=== PATIENT | male | born 1955 | race Caucasian/White ===

== ENCOUNTER → 2022-06-15 07:43 | Outpatient (CLI) | payer MEDICARE, SELFPAY ==
[2022-06-15 08:30] LABS: Add Manual Diff / Slide Review NO; Basophils Absolute Auto 0 /uL (0-100); Basophils Percent Auto 0.6 % (0-2); Eosinophils Absolute Auto 100 /uL (0-450); Hematocrit 44.2 % (41-53); Hemoglobin 14.9 g/dL (13.5-17.5); Lymphocytes Absolute Auto 1300 /uL (1100-4500); Mean Corpuscular HGB Conc 33.6 % (30-36); Mean Corpuscular Hemoglobin 32.3 PG (26-34); Mean Corpuscular Volume 96.1 fL (80-100); Monocytes Absolute Auto 500 /uL (0-900); Monocytes Percent Auto 11.5 % (3-14); Neutrophils Absolute Auto 2100 /uL (1500-7000); Neutrophils Percent Auto 53.9 % (50-75); Platelet Count 141 X10^3/uL (150-400); Red Cell Distribution Width 13.8 % (11.6-14.8); White Blood Cell Count 3.9 X10^3/uL (4.5-11.0)
[2022-06-15 09:17] LABS: Hemoglobin A1C% w Est Avg Glu 5.2 % (4.0-6.0)
[2022-06-15 10:13] LABS: BUN Creatinine Ratio 21.8 (6-22); Blood Urea Nitrogen 19 mg/dL (9-20); Calcium 8.7 mg/dL (8.4-10.2); Carbon Dioxide 25 mmol/L (22-32); Chloride 106 mmol/L (98-107); Estimated Glomerular Filt Rate > 60 mL/min (>60); Glucose 104 mg/dL (80-110); HEMOLYSIS < 15 (0-50); Potassium 4.8 mmol/L (3.4-5.1); Sodium 138 mmol/L (137-145)
== END ==
PROVIDERS: PCP Family Medicine; Referring Provider Orthopaedic Surgery; Visit Provider Orthopaedic Surgery
DX: Z01.818 Encounter for other preprocedural examination (principal); R73.9 Hyperglycemia, unspecified; Z01.812 Encounter for preprocedural laboratory examination
CPT/HCPCS: 36415; 80048; 83036; 85025; 93005; 93010

== ENCOUNTER 2022-07-01 10:39 | Day surgery (SDC) | payer MEDICARE, SELFPAY ==
[2022-06-16 12:37] VITALS: BMI 29.7
[2022-07-01] VITALS (13 sets, daily range): BP systolic 95–135; BP diastolic 51–80; PULSE 58–72; RESP 13–20; TEMP 35.9–36.6; O2SAT 95–100; BMI 29.7
--- NOTE | 2022-07-01 08:30 | DI.RAD.S_ITS ---
PROCEDURE: XR KNEE RT 1TO2V INDICATIONS: post op total knee TECHNIQUE: 2 view(s) of the knee acquired. COMPARISON: [facility] Outside [facility], RG, KNEE 3VW (RT), 03/09/2022, 8:26. Jaron Ruslan, JOLEEN, KNEE 1-2 VIEWS RIGHT, 12/03/2016, 10:14. FINDINGS: Bones: Patient is status post knee joint arthroplasty. Hardware components are in expected positions. Visualized bony structures are intact. Soft tissues: Overlying postoperative changes are noted. IMPRESSION: Normal postoperative examination. Dictated by: Ilya Rodriguez M.D. on 07/01/2022 at 13:44 Approved by: Ilya Rodriguez M.D. on 07/01/2022 at 13:44
--- NOTE | 2022-07-01 11:07 | PM.PREOP ---
Pre-operative Note COVID-19 COVID-19 status: Negative Result date/Date tested (Pos, Neg/Pending): 06/29/22 Interval Note History & Physical reviewed/Exam performed by Physician: Yes Changes to H&P: No
[2022-07-01] MEDS: LACTATED RINGERS 1,000 ML 42 ML IV (11:26)
[2022-07-01] MEDS: PREGABALIN 75 MG CAPSULE PO (11:26)
[2022-07-01] MEDS: CELECOXIB 200 MG CAPSULE PO (11:27)
[2022-07-01] MEDS: ACETAMINOPHEN 325 MG TABLET 975 MG PO (11:27)
[2022-07-01] MEDS: CEFAZOLIN 2 GM IN 0.9 % NACL 100 ML IV (11:40)
--- NOTE | 2022-07-01 11:57 | SUR.OPER ---
Supine on padded OR bed. Pillow under head, arms secured on padded armboards <90 degree abduction. Safety belt across torso. Non-operative leg secured with tape over blanket over lower leg. Operative leg secured in DeMayo/Zacarias/Nathe positioner. Foam padded brace at thigh of operative leg. POSITION APPROVED BY SURGEON AND ANESTHESIA.
[2022-07-01] MEDS: MORPHINE 4 MG/ML INJ INJ (12:40)
[2022-07-01] MEDS: BUPIVACAINE 0.5% W/ EPI (PF) 30 ML VIAL INJ (12:40)
[2022-07-01] MEDS: BUPIVACAINE LIPOSOME 266 MG/20 ML VIAL INJ (12:40)
--- NOTE | 2022-07-01 13:01 | P.OP_ITS ---
Operative Date/Time/Diagnoses Date of procedure: 07/01/22 Time of procedure: 13:01 Pre-op diagnosis: Right knee osteoarthritis Post-op diagnosis: same Procedure & Clinicians Procedure: Right total knee replacement Same procedure as scheduled: Yes Indications: The patient has had progressively worsening right knee pain with radiographic changes consistent with arthritis. Non-operative management has failed and the patient has requested total knee replacement. The risks, benefits and alternatives to surgery were discussed with the patient prior to proceeding. Risks discussed included, but were not limited to, failure to relieve pain, stiffness, infection, nerve damage, deep venous thrombosis, pulmonary embolism, stroke, coma, heart attack, permanent paralysis and , as well as the potential need for eventual revision of the prosthetic. Surgeon: Waylon Brush Curriculum Development Coordinator: Kevin Mcneill Click Yes if Unassisted: No Anesthesia Type: General, Spinal and Local Operative Notes Findings: Severe tricompartmental osteoarthritis Closure Type: primary Specimen(s): none sent Prosthetic devices, grafts, tissues, transplants, or devices: Implants used in this procedure were manufactured by the [employer] and included the BCS II Journey total knee replacement with a size 8 right Oxinium femur, a size 8 non porous tibial base plate, a 10 mm cross-linked polyethylene tibial insert and a 38 mm oval Kyara II patellar component. Applied: implant(s) Estimated Blood Loss (mL): 50 Blood products transfused: none Tourniquet time (min): 50 Procedure in detail: The patient was seen in the pre-operative area, where the patient identified the right knee as the operative site and this was marked with my initials. The patient received pre-operative antibiotics, and was taken to the operating room and placed on the operative table in the supine position. After satisfactory anesthesia, a time study clerk out was performed. The right leg was encircled with a tourniquet about the proximal thigh, and the leg was prepared from the toes to the tourniquet with ChloroPrep in the usual fashion and draped through sterile drapes. The leg was elevated and exsanguinated with Eschmark bandage and the tourniquet inflated to 250 mmHg pressure. The knee was approached through an approximately 18 cm incision centered over the patella and carried into the knee through a medial parapatellar arthrotomy. The anterior osteophytes and soft tissues were removed. The rotational landmarks of Craig's line and the transepicondylar axis were marked on the femur with electrocautery, and intramedullary guide holes for the femur and tibia were created. The distal femoral cut was made in 6 degrees of valgus using the intramedullary guide at the primary cut setting. The proximal tibial cut was then made using the intramedullary guide, taking 9 mm of bone off the less involved side. The extension gap was checked and the rotation of the femoral component confirmed with the gap balancing system. The anterior, posterior and chamfer cuts were then made. The posterior osteophytes and soft tissues were then removed. The posterior capsule was injected with part of a mixture of 60 ml 0.25% Marcaine mixed with 20 ml Exparel and 4 mg of morphine for post-operative pain control. The remainder of this mixture was injected into the capsule and subcutaneous tissues during cement curing. The tibia was prepared with the rotation set by an extra medullary guide. Trial tibial and femoral components were then placed and the intercondylar notch cut through the femoral trial. Range of motion was 0-135 degrees, with good stability throughout the range. The patella was then cut to accommodate the patellar prosthetic. There was no need for a lateral release. The trials were then removed, and the femoral hole plugged with a bone plug. The bone was prepared with pulsatile lavage, and dried with a sponge. Cement was applied and the final prosthetics placed. Excess cement was removed during and after cement curing. After confirming there was no extruded cement posteriorly, the final tibial insert was placed. The knee was copiously irrigated and the tourniquet deflated. Hemostasis was obtained. The capsule was closed with interrupted # 2 polyester suture. The subcutaneous layer was closed with 3-0 Vicryl, and the skin with a running 3-0 V-Lock suture and Dermabond. An Aquacel Ag dressing was applied and the patient was taken to recovery having tolerated the procedure well. The services of a skilled fish hatchery assistant were necessary to accomplish the procedure in an expedient fashion. These services included appropriate positioning of the leg, retraction, suction and assisting with preparation of the bone surfaces. Without the services of Mr. Mcneill the surgery could not have been performed efficiently. Complications: none Post-operative Condition: stable Disposition: PACU Plan for aftercare: The patient will be maintained on a standard total knee replacement protocol wit h weight bearing as tolerated. The patient will receive aspirin and sequential compression devices for DVT prophylaxis. The patient will be discharged home when safe for the home environment.
--- NOTE | 2022-07-01 13:48 | SUR.PHASEI ---
report called to Ariel VINCENT and opportunity for questions given. pt being transferred to room 220. pt updated on plan of care and is agreeable.
[2022-07-01] MEDS: HYDROMORPHONE 0.5 MG INJ 0.2 MG IV (14:39)
[2022-07-01] MEDS: HYDROMORPHONE 2 MG TABLET PO (14:40)
[2022-07-01] MEDS: LACTATED RINGERS 1,000 ML 100 ML IV (15:42)
[2022-07-01] MEDS: hydrOXYzine pamoate 25 MG CAPSULE PO (15:44)
[2022-07-01] MEDS: OXYCODONE IR 10 MG TABLET PO (15:44)
[2022-07-01] MEDS: ACETAMINOPHEN 325 MG TABLET 650 MG PO (17:08)
[2022-07-01] MEDS: OXYCODONE IR 5 MG TABLET PO (18:40)
[2022-07-01] MEDS: DOCUSATE 100 MG CAPSULE PO (21:55)
[2022-07-02 00:20] VITALS: BP 89/55; PULSE 65; RESP 14; TEMP 36.6; O2SAT 96
[2022-07-02] MEDS: ACETAMINOPHEN 325 MG TABLET 650 MG PO ×2 (00:21→05:59)
[2022-07-02 00:30] VITALS: BP 99/62
[2022-07-02 03:45] VITALS: BP 99/52; PULSE 58; RESP 14; TEMP 36.7; O2SAT 98
[2022-07-02 05:25] LABS: Hematocrit 36.7 % (41-53); Hemoglobin 12.5 g/dL (13.5-17.5)
[2022-07-02] MEDS: OXYCODONE IR 10 MG TABLET PO ×2 (05:58→08:46)
[2022-07-02] MEDS: SODIUM CHLORIDE 0.9% FLUSH 10 ML IV ×3 (06:19→09:00)
--- NOTE | 2022-07-02 07:29 | PM.DS.1 ---
History of Present Illness History of Present Illness Date Patient Seen: 07/02/22 Time Patient Seen: 07:29 Chief complaint: right total knee Arthroplasty *OPB* Narrative: The history and physical is contained in the chart in a previously completed note. Please refer to that note for this information. Discharge Providers Provider Date of admission: July 01, 2022 Discharge Date: 07/02/22 Primary care physician: Baljit Noguera MD Consults: 07/01/22 13:51 Consult to Discharge Planning Routine Comment: Consult to Physical Therapy Evaluate & Treat Comment: Physician Instructions: postop TKA protocol Discharge provider: Waylon Brush MD Summary Hospital Course Discharge Diagnosis: 1. Right knee posttraumatic osteoarthritis 2. Post hemorrhagic anemia Hospital Course: The patient was admitted to the hospital and taken directly to the operating room on July 01, 2022. He underwent a right total knee replacement without significant issues. On postoperative day 1 he was noted to have a mild post hemorrhagic anemia which we anticipate will improve with expectant management and normal diet. Status at Discharge Cognitive/behavioral status at discharge: at baseline, oriented Functional status at discharge: uses cane/walker Overall status at discharge: patient is progressing back to baseline Time Spent with Patient Time spent: Less than 30 minutes Exam Vital Signs (past 8 hours): - 07/02/22 00:20 07/02/22 00:30 07/02/22 03:45 Temperature 97.8 F 98.1 F Pulse Rate 65 58 L Respiratory Rate 14 14 Blood Pressure 89/55 L 99/62 99/52 L Pulse Oximetry 96 98 Oxygen Flow Rate 0 0 Oxygen Delivery Method Room Air Oxygen Flow Rate 0 Narrative Exam Narrative: Right knee wound is dressed with no drainage on the bandage. Calf is soft. I touch and motion are intact in the right lower extremity. Objective Labs Result Diagrams: 07/02/22 04:40 Labs: Laboratory Results - last 24 hr 07/02/22 04:40 Hgb 12.5 L Hct 36.7 L PFSH Medical History (Updated 06/16/22 @ 13:26 by Kim Calvillo RN) Ankle swelling Anxiety about health COVID-19 virus infection (05/15/22) DVT (deep venous thrombosis) (2014) Easy bruisability Surgical History (Updated 06/16/22 @ 13:17 by Kim Calvillo RN) H/O vasectomy Hx of hernia repair (2020) Hx of knee surgery (1979) Hx of vein stripping (1977) Social History household members: spouse Smoking Status: Former smoker alcohol intake: current Discharge Assessment & Plan Assessment and Plan Assessment: Stable postoperative day 1 status post right total knee replacement with mild post hemorrhagic anemia. Plan of Treatment: Plan for discharge today. Follow up in my office in 10-14 days. Discharge prescription for oxycodone, Lovenox and Vistaril have been called in. He also has been instructed in the use of Tylenol for additional pain control. He will be on Lovenox initially due to his prior history of a deep venous thrombosis. After he completes a 10 day course of Lovenox he will be on aspirin 81 mg twice a day. Discharge Plan Discharge Plan Patient Disposition: Home Discharge orders & Medications Discharge Orders: Discharge (Order); Ordered 07/02/22 Ordered By: Waylon Brush Prescriptions: New acetaminophen 325 mg Tablet 650 mg PO Q6HR Qty: 100 0RF oxycodone 5 mg Tablet 5 mg PO Q4H PRN (Reason: Pain, Moderate (4-6)) Qty: 40 0RF hydroxyzine pamoate 25 mg Capsule 25 mg PO Q6H PRN (Reason: Nausea And Vomiting) Qty: 30 0RF enoxaparin [Lovenox] 40 mg/0.4 mL Syringe 40 mg SUBCUT DAILY Qty: 9 0RF Continued multivitamin Tablet 1 tab PO DAILY vitamin B complex Capsule 1 cap PO DAILY Follow up/Referrals: Waylon Brush MD [Physician] - 2 Weeks Baljit Noguera MD [Primary Care Provider] - Diet/Activity/Treatments Diet: Diet as Tolerated and Regular Activity: You may bear weight as tolerated on your right leg. Cold/Heat Therapy: Apply ice for 15 minutes every hour as needed to the right knee for pain control. Other treatments: After you have completed the Lovenox, start aspirin 81 mg twice a day. Skin/Wound/Dressing Care Report to your healthcare provider any signs of infection, such as:: chills, fever, night sweats, increased pain, unusual drainage and unusual redness Dressing: You may remove the Timothy wrap 3 days after surgery and shower normally with the deeper dressing in place. Leave the deeper dressing in place until your postoperative follow-up. If the central strip of this dressing becomes saturated with either water or blood, please call the office to have it evaluated. Visit Report/Discharge Packet Instructions: DI for Knee Replacement Stand Alone Forms: Surgery Discharge Discharge Data Primary Care Provider: Baljit Noguera Attending Provider: Waylon Brush Quality VTE Deep Vein Thrombosis/Pulmonary Embolism Present on Admission: No
[2022-07-02 08:01] VITALS: BP 108/62; PULSE 61; RESP 18; TEMP 36.8; O2SAT 100
[2022-07-02] MEDS: ENOXAPARIN 40 MG/0.4 ML SYRINGE SUBCUT (08:45)
[2022-07-02] MEDS: DOCUSATE 100 MG CAPSULE PO (08:46)
--- NOTE | 2022-07-02 08:57 | PT.IIE ---
Current Diagnoses Unilateral post-traumatic osteoarthritis, right knee (07/01/22) Surgery Performed Operation Date: 07/01/22 13:15 Actual Procedures p Total Knee Arthroplasty(Right) - Waylon Brush MD Surgical History (Last Updated 06/16/22 @ 13:17 by Kim Calvillo, MELISA) H/O vasectomy Hx of hernia repair (2020) Hx of knee surgery (1979) Hx of vein stripping (1977) Medical History (Last Updated 06/16/22 @ 13:26 by Kim Calvillo RN) Ankle swelling Anxiety about health COVID-19 virus infection (05/15/22) DVT (deep venous thrombosis) (2014) Easy bruisability Physical Therapy Inpatient Evaluation/Re-Eval M1 PT/OT-IP Prior Functional Status Start: 07/02/22 13:29 Freq: NEEDED Status: Active Protocol: Document 07/02/22 08:57 AB (Rec: 07/02/22 13:38 AB [email or web address]) Medical Review Prior Functional Status Medical History Reviewed Yes Communication able to make needs known Mobility and Gait pt stated that he is independent with all mobilities and ambulation without AD Social History Household Members spouse Living Arrangements House Number of Floors (Floors) 3 or More Floors Number of Stairs To Enter/Railing? 5 steps to tner with wide rails 3 steps B rails to the kitchen Home Environment High Toilet,Walk in Shower Home Equipment Front Wheel Walker,Quad Cane, Straight Cane,Crutches,Shower Seat without Backrest,Hand Held Shower,Grab Bars In Shower M2 PT-IP Current Condition Start: 07/02/22 13:29 Freq: NEEDED Status: Active Protocol: Document 07/02/22 08:57 AB (Rec: 07/02/22 13:38 AB [email or web address]) Physical Therapy Current Condition Current Condition Evaluation Date 07/02/22 Treatment Diagnosis s/p R TKA; difficulty in walking Onset Date 07/01/22 M3 PT-IP Subjective Start: 07/02/22 13:29 Freq: NEEDED Status: Active Protocol: Document 07/02/22 08:57 AB (Rec: 07/02/22 13:38 AB [email or web address]) Subjective Physical Therapy Visit Type Type Initial Evaluation Visit Start Time 08:57 Visit Stop Time 09:52 Total Visit Minutes 55 Number of AQUATICS DIRECTOR Visits 0 Physical Therapy Visit Comments Patient Comments agreeable to do PT M4 PT-IP Mobility and Gait Start: 07/02/22 13:29 Freq: NEEDED Status: Active Protocol: Document 07/02/22 08:57 AB (Rec: 07/02/22 13:38 AB [id number]) PT-Bed Mobility Assessment Supine to Sit Supine to Sit Standby Assistance Sit to Supine Sit to Supine Standby Assistance PT-Transfer Assessment Sit to and From Stand Sit to and from Stand Contact Guard Assistance,1 Person Assistance,Use of Upper Extremities Equipment Transfer Assistive Device Gait Belt,Front Wheeled Walker Orthotic/Prosthetic Devices or Brace: No Transfers Transfer Destination Chair Transfer Technique ambulated Transfer Ability Level of Assist Contact Guard Assistance,1 Person Assistance,Use of Upper Extremities Comments Mobility Comments completed supine to sit SBA. able to sit on EOB SBA. educated on safety and quads activation in standing. completed sit to stand CGA and ambulated to the chair using FWW CGA. pt sat on the chair. caregiver training conducted . educated spouse on how to use safety belt and how to assist pt. spouse was able to put safety belt on. assisted pt with sit to stand and assisted pt with ambulation using fWW in the hallway ~ 125 ft. educated pt on up/down steps using R rail ascending. educated spouse on how to assist pt. pt completed stairs safely with spouse assisting. pt ambulated towards the room using FWW ~ 100 ft CGA. assisted back to his room. ambulated from w/c to chair using fWW CGA. positioned on chair. call light and table placed within reach. Gait Assessment Gait Gait Assistance Required: Contact Guard Assist Distance (Feet) 125 Able to Maintain Weight Bearing Status Yes During Gait Assistive Devices Assistive Device Gait Belt,Front Wheeled Walker Orthotic/Prosthetic Devices or Brace: No Gait Deviations General Gait Pattern Antalgic,Decreased Stride Length,Decreased Feet Clearance Factors Limiting Gait Function Factors Limiting Gait Function Decreased Activity Tolerance, Decreased Strength,Limited Range of Motion,Pain,Poor Balance,Poor Safety Awareness Stair Climbing Assessment Evaluation Level of Assist On Stairs Contact Guard Assistance Devices Stair Climbing Assistive Devices Right Railing Technique/Endurance Stair Climbing Direction Ascend and Descend Stair Climbing Technique Step to Step Number of Steps Climbed 3 Query Text: Stair Climbing Set # Repetitions (reps) 2 PT-Balance Assessment Sitting Balance and Reactions Static Sitting Balance Ability Good Dynamic Sitting Balance Ability Good Standing Balance and Reactions Static Standing Balance Ability Fair Dynamic Standing Balance Ability Fair Device Used FWW M5 PT-IP Objective Assessments Start: 07/02/22 13:29 Freq: NEEDED Status: Active Protocol: Document 07/02/22 08:57 AB (Rec: 07/02/22 13:38 AB [id number]) Orientation Orientation/Cognition Level of Alertness Alert Orientation Name,Place,Situation Language Function Ability No Deficits Noted Safety Awareness Decreased Safety Awareness Memory Description No Deficits Noted Gross Range of Motion Lower Extremity ROM Impairments R knee flexion: ~ 40 deg R knee extension: 20 deg less to 0 Strength Lower Extremity Strength Assessment Right Impaired Hip 3+/5 Knee 3/5 Sensation Assessment Sensation Gross Sensation WNL Muscle Tone Muscle Tone WNL Yes M6 PT-IP Treatment Start: 07/02/22 13:29 Freq: NEEDED Status: Active Protocol: Document 07/02/22 08:57 AB (Rec: 07/02/22 13:38 AB [id number]) Physical Therapy Treatment Education Education Provided Precautions,Weight Bearing Status,Post-Op Packet,Safety M7 PT-IP Assessment and Plan Start: 07/02/22 13:29 Freq: NEEDED Status: Active Protocol: Document 07/02/22 08:57 AB (Rec: 07/02/22 13:38 AB [email or web address]) PT Summary Assessment and Plan Potential Rehabilitation Potential Good Status of Condition at Evaluation Stable Summary Impairments Pain,ROM,Strength,Balance, Coordination,Sensation,Tone, Cognition,Bed Mobility, Transfers,Gait,Activity Tolerance Assessment Summary pt requiring CGA with mobility using FWW. caregiver training conducted and spouse was able to assist pt safely. pt may go home when medically stable. Goals Bed Mobility Goal Independent Transfer Goal Independent,Front Wheeled Walker Gait Goal Independent,Front Wheel Walker Gait Distance 250 Other Goals up/down 5 steps R rail mod I Days to Meet Goals 5 Frequency of Treatment Frequency Of Treatment Twice a Day Treatment Plan Physical Therapy Treatment Plan Bed Mobility Training,Transfer Training,Gait Training, Therapeutic Exercise,Balance Retraining,Post Op Education, Discharge Planning,Hot or Cold Pack,Neuromuscular Re-ed, Coordination Retraining,Manual Therapy Weight Bearing Status Weight Bearing Status Weight Bear as Tolerated Allowed Weight Bearing Amount (enter % RLE WBAT or #) (%) Recommendations To Nursing Amount of Assist Needed 1 Person Assist Discharge Recommendations PT Discharge Recommendations Home with Assistance, Outpatient PT Transportation Needs at Discharge Private Vehicle
--- NOTE | 2022-07-02 10:33 | PC.NURSE ---
dc instructions given including how to administer enoxiparin. I demonstrated how to give the injection, patient and wanted to watch only. they said they will be comfortable doing it at home even without return demonstration. IV removed by PRINTING PRESSMAN.
== END 2022-07-02 10:33 | disposition home or self-care (01) ==
LOC: OR 10:41 → AC 10:43
PROVIDERS: PCP Family Medicine; Referring Provider Orthopaedic Surgery; Visit Provider Orthopaedic Surgery
PROC: 0SRC0JZ Replacement of Right Knee Joint with Synthetic Substitute, Open Approach (ICD-10-PCS; CPT 27447; principal; 2022-07-01 13:15)
DX: M17.11 Unilateral primary osteoarthritis, right knee (principal); D50.0 Iron deficiency anemia secondary to blood loss (chronic)
CPT/HCPCS: 27447; 36415; 73560; 85014; 85018; 97161; 97530; C1776; C1713; C9290; J0690; J1100; J1170; J1650; J2250; J2270; J2405; J2704; J3010

== ENCOUNTER 2022-08-04 16:05 | Emergency (ER) | payer MEDICARE, SELFPAY ==
[2022-07-01 13:56] VITALS: BMI 29.7
[2022-08-04 16:30] VITALS: BP 139/62; PULSE 62; RESP 16; TEMP 36.7; O2SAT 98; BMI 26.9
--- NOTE | 2022-08-04 17:58 | DI.RAD.S_ITS ---
PROCEDURE: XR KNEE RT 3V INDICATIONS: status post right TKA, skin erythema and drainage TECHNIQUE: 3 views of the knee were acquired. COMPARISON: [facility], [place], XR KNEE RT 1TO2V, 07/01/2022, 13:10. FINDINGS: Bones: Total knee joint prosthesis noted in place. Generalized decrease in osseous mineralization noted. Soft tissues: No joint effusion. No suspicious soft tissue calcifications. IMPRESSION: Total knee arthroplasty in good position. Osteopenia. Approved by: Misbah Tyler M.D. on 08/04/2022 at 18:05
--- NOTE | 2022-08-04 18:47 | ED.LOWEXIN ---
HPI - Extremity Injury (Lower) <Genoveva Rivera PA-C - Last Filed: 08/04/22 20:22> General Chief Complaint: Extremity Injury, Lower Stated Complaint: Right knee replacement thinks infection Time Seen by Provider: 08/04/22 17:37 History of Present Illness HPI Narrative: 66-year-old male who is 5 weeks status post a right knee replacement presents to the ED with 4 days of wound dehiscence. Patient states that he was healing well, there is a spot on his incision, which he said opened up a little bit, and he saw some clear fluid come from it. Patient states that the area feels warm, however he has no pain or swelling. Patient was unable to contact his surgeon Dr. Brush on the phone today, and came into the ED to be evaluated. Patient denies any fevers or chills, nausea, vomiting. Patient has been working well with physical therapy to rehabilitate his right knee. Patient says that it is after he started his physical therapy and increased movement that he noticed his wound dehisce. Related Data Home Medications Medication Instructions Recorded Confirmed multivitamin 1 tab PO DAILY 06/16/22 06/16/22 vitamin B complex 1 cap PO DAILY 06/16/22 06/16/22 Previous Rx's Medication Instructions Recorded acetaminophen 325 mg tablet 650 mg PO Q6HR #100 tabs 07/02/22 enoxaparin 40 mg/0.4 mL 40 mg (0.4 mL) SUBCUT DAILY #9 mL 07/02/22 subcutaneous syringe (Lovenox) hydroxyzine pamoate 25 mg capsule 25 mg PO Q6H PRN Nausea And 07/02/22 Vomiting #30 caps oxycodone 5 mg tablet 5 mg PO Q4H PRN Pain, Moderate 07/02/22 (4-6) #40 tabs Allergies Allergy/AdvReac Type Severity Reaction Status Date / Time rivaroxaban [From Xarelto] AdvReac Intermediate Back Pain Verified 07/01/22 11:01 Review of Systems <Genoveva Rivera PA-C - Last Filed: 08/04/22 20:22> Review of Systems ROS Unobtainable: All systems reviewed & are unremarkable except as noted in HPI and below Constitutional Constitutional: Denies chills, Denies fatigue, Denies fever(s), Denies frequent falls, Denies lethargy and Denies weakness Eyes Eyes: Denies change in vision, Denies eye discharge, Denies irritation and Denies loss of vision ENT Ears, Nose, Mouth, and Throat: Denies change in voice, Denies dizziness, Denies neck pain, Denies sore throat and Denies throat swelling Cardiovascular Cardiovascular: Denies chest pain, Denies irregular heart rhythm, Denies lightheadedness, Denies palpitations, Denies dyspnea, Denies dyspnea on exertion and Denies orthopnea Respiratory Respiratory: Denies cough, Denies dyspnea, Denies dyspnea on exertion and Denies wheezing Gastrointestinal Gastrointestinal: Denies abdominal pain, Denies change in bowel habits, Denies diarrhea, Denies nausea and Denies vomiting Genitourinary Genitourinary: Denies hematuria, Denies flank pain, Denies urinary incontinence and Denies urinary urgency Musculoskeletal Musculoskeletal: Denies back pain, Denies muscle weakness, Denies neck pain, Denies numbness and Denies tingling Integumentary/Breasts Skin/Breast: Denies pruritus, Denies erythema, Denies rash and Denies wounds Comments: Wound dehiscence on right knee Neurologic Neurologic: Denies behavioral changes, Denies confusion, Denies dizziness, Denies frequent falls, Denies loss of vision, Denies numbness, Denies tingling and Denies weakness Psychiatric Psychiatric: Denies anxiety, Denies behavioral changes, Denies confusion, Denies depression, Denies homicidal ideation and Denies suicidal ideation Endocrine Endocrine: Denies fatigue, Denies flushing and Denies palpitations Hematologic/Lymphatic Hematologic/Lymphatic: Denies easy bruising Allergic/Immunologic Allergic/Immunologic: Denies urticaria, Denies throat swelling and Denies wheezing Patient History <Genoveva Rivera PA-C - Last Filed: 08/04/22 20:22> Medical History Ankle swelling Anxiety about health COVID-19 virus infection (05/15/22) DVT (deep venous thrombosis) (2014) Easy bruisability Surgical History H/O vasectomy Hx of hernia repair (2020) Hx of knee surgery (1979) Hx of vein stripping (1977) Social History household members: spouse Smoking Status: Former smoker alcohol intake: current Smoking Status: Former smoker alcohol intake frequency: 0-2 drinks per day Substance Use Type: marijuana Exam <Genoveva Rivera PA-C - Last Filed: 08/04/22 20:22> Narrative Exam Narrative: Const General:?cooperative, healthy appearing and comfortable HENNC Head:?normal to inspection Ears:?hearing grossly normal bilaterally Nose:?external nose normal Face and sinus:?normal facial exam and sinuses nontender Mouth:?oral mucosae normal Throat:?posterior oropharynx normal Eyes General:?appearance normal, both eyes and all related structures Neck Neck:?normal visual inspection and no lymphadenopathy noted Resp Effort & Inspection:?normal respiratory effort Auscultation:?clear to auscultation bilaterally Cardio Rate:?regular rate Rhythm:?regular rhythm Integumentary Small, 0.25 cm area of wound dehiscence noted, a drop of serous fluid visualized on exam. No purulence. There is some erythema surrounding the area, but no swelling or tenderness to palpation. Patient has good range of motion in the knee, is able to walk normally. Neuro General:?patient alert, patient awake and patient oriented x3 Initial Vital Signs Initial Vital Signs: Vital Signs Temperature 98.0 F 08/04/22 16:30 Pulse Rate 62 08/04/22 16:30 Respiratory Rate 16 08/04/22 16:30 Blood Pressure 139/62 08/04/22 16:30 Pulse Oximetry 98 08/04/22 16:30 Oxygen Delivery Method 08/04/22 16:30 <Vdial Herrera MD - Last Filed: 09/15/22 08:53> Initial Vital Signs Initial Vital Signs: Vital Signs Temperature 98.0 F 08/04/22 16:30 Pulse Rate 62 08/04/22 16:30 Respiratory Rate 16 08/04/22 16:30 Blood Pressure 139/62 08/04/22 16:30 Pulse Oximetry 98 08/04/22 16:30 Oxygen Delivery Method 08/04/22 16:30 Course <Genoveva Rivera PA-C - Last Filed: 08/04/22 20:22> Orders Ordered: ED Orders 08/04/22 16:37 Wound Culture and Gram Stain Stat 08/04/22 17:58 XR knee RT 3V Stat Vital Signs Vital signs: Vital Signs - 8 hr 08/04/22 16:30 Temperature 98.0 F Pulse Rate 62 Respiratory Rate 16 Blood Pressure 139/62 Pulse Oximetry 98 Oxygen Delivery Method Room Air <Vidal Herrera MD - Last Filed: 09/15/22 08:53> Orders Ordered: ED Orders 08/04/22 16:37 Wound Culture and Gram Stain Stat 08/04/22 17:58 XR knee RT 3V Stat Vital Signs Vital signs: Vital Signs - 8 hr 08/04/22 16:30 Temperature 98.0 F Pulse Rate 62 Respiratory Rate 16 Blood Pressure 139/62 Pulse Oximetry 98 Oxygen Delivery Method Room Air MDM - Extremity Injury (Lower) <Genoveva Rivera PA-C - Last Filed: 08/04/22 20:22> MDM Narrative Medical decision making narrative: 66-year-old male who is 5 weeks status post a right knee replacement presents to the ED with 4 days of wound dehiscence. Concern for cellulitis versus wound dehiscence. Will start patient on Keflex. Patient agrees to follow-up with Dr. Brush as soon as possible. ED return precautions discussed with patient. Patient verbalized understanding. Discharge Plan Departure Patient Disposition: Home Clinical Impression: Wound dehiscence Instructions: DI for Wound Dehiscence Activity Restrictions/Additional Instructions: You were evaluated in the ED today to evaluate a surgical wound. It appears that the wound might be infected, also opened up a little due to all the physical therapy that you have been doing by flexing the knee. Please take the antibiotics as prescribed, follow-up with Ortho Dr. Brush as soon as possible. Your knee x-ray today shows no abnormalities. Please return to the ED if you have worsening symptoms, fever, chills. Prescriptions: No Action multivitamin Tablet 1 tab PO DAILY vitamin B complex Capsule 1 cap PO DAILY acetaminophen 325 mg Tablet 650 mg PO Q6HR Qty: 100 0RF oxycodone 5 mg Tablet 5 mg PO Q4H PRN (Reason: Pain, Moderate (4-6)) Qty: 40 0RF hydroxyzine pamoate 25 mg Capsule 25 mg PO Q6H PRN (Reason: Nausea And Vomiting) Qty: 30 0RF enoxaparin [Lovenox] 40 mg/0.4 mL Syringe 40 mg SUBCUT DAILY Qty: 9 0RF Referrals: Baljit Noguera MD [Primary Care Provider] - Visit Report Forms: Patient Portal/API <Vidal Herrera MD - Last Filed: 09/15/22 08:53> Cosign ED Attending Dawoodature Attestation: I was immediately available for consultation of this patient was seen and evaluated by the APC in the department.
== END 2022-08-04 19:15 | disposition home or self-care (01) ==
PROVIDERS: Emergency Provider Student in an Organized Health Care Education/Training Program; PCP Family Medicine
DX: T81.30XA Disruption of wound, unspecified, initial encounter (principal)
CPT/HCPCS: 73562; 87070; 87075; 87077; 87147; 87186; 87205; 99281; 99283

== ENCOUNTER 2024-05-01 12:13 | Emergency (ER) | payer MEDICARE, SELFPAY ==
[2022-07-01 13:56] VITALS: BMI 29.7
[2024-05-01 12:28] VITALS: BP 101/60; PULSE 73; RESP 17; TEMP 36.7; O2SAT 99; BMI 27.3
--- NOTE | 2024-05-01 12:34 | DI.US.S_ITS ---
PROCEDURE: US PERIPH VENOUS LOW EXTREM RT INDICATIONS: r/u DVT after injury, not on thinners TECHNIQUE: Real-time imaging, as well as color and pulse Doppler interrogation, were performed of the lower extremity deep veins from the inguinal ligament to the popliteal fossa, with documentation of the visualized calf veins. COMPARISON: None. FINDINGS: The common femoral, femoral, popliteal, and the visualized calf veins are normally compressible, and free of intraluminal thrombus. Color and pulse Doppler demonstrate normal phasic intraluminal flow. There is normal augmentation response to distal compression maneuver. There is some soft tissue edema and superficial varicosities involving the proximal right calf region. IMPRESSION: No findings of lower extremity deep venous thrombosis. Dictated by: Jose F Hughes M.D. on 05/01/2024 at 13:22 Approved by: Jose F Hughes M.D. on 05/01/2024 at 13:23
--- NOTE | 2024-05-01 13:30 | DI.RAD.S_ITS ---
PROCEDURE: XR ANKLE RT MIN 3V INDICATIONS: Pain/injury TECHNIQUE: 3 views of the ankle were acquired. COMPARISON: [facility], CR, XR TIBIA FIBULA RT 2V, 05/01/2024, 13:35. [facility], CR, XR ANKLE LT MIN 3V, 05/01/2024, 13:35. [facility], CR, XR TIBIA FIBULA LT 2V, 05/01/2024, 13:35. FINDINGS: Bones: Small ossification is present posterior to lateral cuneiform and inferior to the anterior calcaneus. Soft tissues: No tibiotalar joint effusion. Achilles tendon appears normal. IMPRESSION: Small irregular ossification is present posterior to scutal form inferior to anterior calcaneus. Avulsion fracture be excluded Dictated by: Mer Cross M.D. on 05/01/2024 at 14:25 Approved by: Mer Cross M.D. on 05/01/2024 at 14:26
--- NOTE | 2024-05-01 13:32 | ED_ITS ---
HPI - Extremity Injury (Lower) General Chief Complaint: Extremity Injury, Lower Stated Complaint: ran over legs with tractor, thinks getting clots Time Seen by Provider: 05/01/24 13:22 Source: patient and family Mode of arrival: Wheelchair History of Present Illness HPI Narrative: Patient here with . Complains of right greater than left leg pain/injury. Pants shoes and socks removed for exam. Patient states 2 ays ago he was t rying to get off his small tractor, while he was bringing his left leg out of the tractor his right foot caught the gas and brake pedal system and caused the tractor to go backwards and the front left tire ran over his left foot and ankle bringing him down to the ground. It was soft mud that his left lower extremity sank into. He has been up and walking without difficulty since then. However as diffuse medial posterior bruising of the right leg. No history of blood clots in legs or lungs. No chest pain or shortness of breath. Related Data Home Medications Medication Instructions Recorded Confirmed multivitamin 1 tab PO DAILY 06/16/22 06/16/22 vitamin B complex 1 cap PO DAILY 06/16/22 06/16/22 Previous Rx's Medication Instructions Recorded acetaminophen 325 mg tablet 650 mg (2 x 325 mg) PO Q6HR #100 07/02/22 tabs enoxaparin 40 mg/0.4 mL 40 mg (0.4 mL) SUBCUT DAILY #9 mL 07/02/22 subcutaneous syringe (Lovenox) hydroxyzine pamoate 25 mg capsule 25 mg PO Q6H PRN Nausea And 07/02/22 Vomiting #30 caps oxycodone 5 mg tablet 5 mg PO Q4H PRN Pain, Moderate 07/02/22 (4-6) #40 tabs Allergies Allergy/AdvReac Type Severity Reaction Status Date / Time rivaroxaban [From Xarelto] AdvReac Intermediate Back Pain Verified 05/01/24 1 2:28 Review of Systems Review of Systems Narrative: GENERAL: negative chills, fatigue, malaise, fever, sweats. HEENT: negative sinus pain, ear pain, sore throat RESPIRATORY: negative dyspnea, cough CARDIOVASCULAR: negative chest pain, palpitations GASTROINTESTINAL: negative nausea, vomiting, abdominal pain : negative dysuria, frequency, hematuria MUSCULOSKELETAL: Positive muscle or bony pain SKIN: negative rash, skin lesions NEUROLOGIC: negative weakness, numbness ROS Unobtainable: All systems reviewed & are unremarkable except as noted in HPI and below Patient History Medical History COVID-19 virus infection (05/15/22) Anxiety about health Easy bruisability Ankle swelling DVT (deep venous thrombosis) (2014) Surgical History H/O vasectomy Hx of hernia repair (2020) Hx of vein stripping (1977) Hx of knee surgery (1979) Social History household members: spouse Smoking Status: Former smoker alcohol intake: current Smoking Status: Former smoker alcohol intake frequency: 0-2 drinks per day Substance Use Type: marijuana Exam Narrative Exam Narrative: GENERAL: in no distress, not toxic not dyspneic HEAD: Normocephalic. EYES: Pupils equal round EXTREMITIES: No gross deformities. Examination right lower extremity there is diffuse bruising and tenderness to the medial posterior leg. Mild diffuse calf tenderness but no palpable cords. Achilles tendon is nontender. Brooks test intact. Skin is intact. Foot is warm soft and pink. Strong pedal pulse brisk cap refills and light touch intact to foot and toes. Examination left lower extremity nontender calf tib-fib ankle and foot. Foot is warm soft and pink with brisk cap refills. Patient able to bear and stand way and walk, not antalgic or foot drop. No gross deformities of the ankles. Compression of both calcaneus nontender. BACK: No flank tenderness. No midline tenderness or step-off of the cervicothoracic or lumbar spine NEURO: AOx4. SKIN: Warm and dry PSYCH: Not anxious, is cooperative Initial Vital Signs Initial Vital Signs: Vital Signs Temperature 98.0 F 05/01/24 12:28 Pulse Rate 73 05/01/24 12:28 Respiratory Rate 17 05/01/24 12:28 Blood Pressure 101/60 05/01/24 12:28 Pulse Oximetry 99 05/01/24 12:28 Oxygen Delivery Method Room Air 05/01/24 12:28 Course Orders Ordered: ED Orders 05/01/24 12:34 US periph venous low extrem rt Stat 05/01/24 13:30 XR ankle LT min 3V Stat XR ankle RT min 3V Stat XR tibia fibula LT 2V Stat XR tibia fibula RT 2V Stat Vital Signs Vital signs: Vital Signs - 8 hr 05/01/24 12:28 05/01/24 15:03 Temperature 98.0 F Pulse Rate 73 73 Respiratory Rate 17 16 Blood Pressure 101/60 120/74 Pulse Oximetry 99 98 Oxygen Delivery Method Room Air Room Air MDM - Extremity Injury (Lower) Imaging Data US - DVT: Radiologist's Impression: [address] [address] Ultrasound Report Signed Patient: Adelaide Menezes MR#: [id number] : 1955 Acct:[id number] Age/Sex: 68 / M Date of Service: 05/01/24 Loc: ED Accession Number: [id number] Procedure: US periph venous low extrem rt Ordering Provider: Ranjan Brooks MD PROCEDURE: US PERIPH VENOUS LOW EXTREM RT INDICATIONS: r/u DVT after injury, not on thinners TECHNIQUE: Real-time imaging, as well as color and pulse Doppler interrogation, were performed of the lower extremity deep veins from the inguinal ligament to the popliteal fossa, with documentation of the visualized calf veins. COMPARISON: None. FINDINGS: The common femoral, femoral, popliteal, and the visualized calf veins are normally compressible, and free of intraluminal thrombus. Color and pulse Doppler demonstrate normal phasic intraluminal flow. There is normal augmentation response to distal compression maneuver. There is some soft tissue edema and superficial varicosities involving the proximal right calf region. IMPRESSION: No findings of lower extremity deep venous thrombosis. Dictated by: Jose F Hughes M.D. on 05/01/2024 at 13:22 Approved by: Jose F Hughes M.D. on 05/01/2024 at 13:23 Extremity x-ray #1: Radiologist's Impression: [address] [address] XRay Report Signed Patient: Adelaide Menezes MR#: [id number] : 1955 Acct:[id number] Age/Sex: 68 / M Date of Service: 05/01/24 Loc: ED Accession Number: [id number] Procedure: XR tibia fibula LT 2V Ordering Provider: Ant Santizo MD PROCEDURE: XR TIBIA FIBULA LT 2V INDICATIONS: Pain/injury TECHNIQUE: 2 views of the tibia and fibula were acquired. COMPARISON: [facility], , XR ANKLE LT MIN 3V, 05/01/2024, 13:35. FINDINGS: Bones: No fractures or dislocations. No suspicious bony lesions. Soft tissues: No suspicious soft tissue calcifications or masses. IMPRESSION: No visualized acute fracture or dislocation. However, if clinical concern and/or pain persist, short interval imaging followup in 7-10 days is recommended, as occult injury cannot be definitively excluded. Dictated by: Mer Cross M.D. on 05/01/2024 at 14:26 Approved by: Mer Cross M.D. on 05/01/2024 at 14:27 Extremity x-ray #2: Radiologist's Impression: [address] [address] XRay Report Signed Patient: Adelaide Menezes MR#: [id number] : 1955 Acct:[id number] Age/Sex: 68 / M Date of Service: 05/01/24 Loc: ED Accession Number: [id number] Procedure: XR tibia fibula RT 2V Ordering Provider: Ant Santizo MD PROCEDURE: XR TIBIA FUBULA RT 2V INDICATIONS: Pain/injury TECHNIQUE: 2 views of the tibia and fibula were acquired. COMPARISON: [facility], , XR ANKLE RT MIN 3V, 05/01/2024, 13:35. FINDINGS: Bones: Irregular ossification posterior to cuneiform inferior to the anterior calcaneus. Soft tissues: No suspicious soft tissue calcifications or masses. IMPRESSION: Irregular ossification inferior to the anterior calcaneus. Fracture/avulsion injury cannot be excluded. Dictated by: Mer Cross M.D. on 05/01/2024 at 14:28 Approved by: Mer Cross M.D. on 05/01/2024 at 14:29 Extremity x-ray #3: Radiologist's Impression: [address] [address] XRay Report Signed Patient: Adelaide Menezes MR#: [id number] : 1955 Acct:[id number] Age/Sex: 68 / M Date of Service: 05/01/24 Loc: ED Accession Number: [id number] Procedure: XR ankle LT min 3V Ordering Provider: Ant Santizo MD PROCEDURE: XR ANKLE LT MIN 3V INDICATIONS: Pain/injury TECHNIQUE: 3 views of the ankle were acquired. COMPARISON: [facility], CR, XR TIBIA FIBULA LT 2V, 05/01/2024, 13:35. FINDINGS: Bones: Very lucency at the distal fibular tip. Ankle mortise is normally aligned. No suspicious bony lesions. Soft tissues: Mild ankle edema. Achilles tendon appears normal. IMPRESSION: Minimal nondisplaced distal fibular tip lucency. Subacute fracture cannot be excluded. Recommend follow-up imaging in 7-10 days. Dictated by: Mer Cross M.D. on 05/01/2024 at 14:22 Approved by: Mer Cross M.D. on 05/01/2024 at 14:24 Extremity x-ray 4.: Radiologist's Impression: [address] [address] XRay Report Signed Patient: Adelaide Menezes MR#: [id number] : 1955 Acct:[id number] Age/Sex: 68 / M Date of Service: 05/01/24 Loc: ED Accession Number: [id number] Procedure: XR ankle RT min 3V Ordering Provider: Ant Santizo MD PROCEDURE: XR ANKLE RT MIN 3V INDICATIONS: Pain/injury TECHNIQUE: 3 views of the ankle were acquired. COMPARISON: [facility], CR, XR TIBIA FIBULA RT 2V, 05/01/2024, 13:35. [facility], CR, XR ANKLE LT MIN 3V, 05/01/2024, 13:35. [facility], CR, XR TIBIA FIBULA LT 2V, 05/01/2024, 13:35. FINDINGS: Bones: Small ossification is present posterior to lateral cuneiform and inferior to the anterior calcaneus. Soft tissues: No tibiotalar joint effusion. Achilles tendon appears normal. IMPRESSION: Small irregular ossification is present posterior to scutal form inferior to ant erior calcaneus. Avulsion fracture be excluded Dictated by: Mer Cross M.D. on 05/01/2024 at 14:25 Approved by: Mer Cross M.D. on 05/01/2024 at 14:26 [facility] Narrative Medical decision making narrative: Patient here with . Complains of right greater than left leg pain/injury. Pants shoes and socks removed for exam. Patient states 2 ays ago he was trying to get off his small tractor, while he was bringing his left leg out of the tractor his right foot caught the gas and brake pedal system and caused the tractor to go backwards and the front left tire ran over his left foot and ankle bringing him down to the ground. It was soft mud that his left lower extremity sank into. He has been up and walking without difficulty since then. However as diffuse medial posterior bruising of the right leg. No history of blood clots in legs or lungs. No chest pain or shortness of breath. After history and exam ultrasound right leg x-ray bilateral tib-fib x-ray bilateral ankles [facility] Medical records reviewed: No recent visit for this complaint Differential considered: Includes but not limited to right leg DVT, tib-fib fracture tib-fib contusions ankle sprain ankle strain ankle fracture Imaging studies independently reviewed: Ultrasound right lower extremity no DVT X-ray bilateral tib-fib on the right possible fracture avulsion injury anterior calcaneus X-ray bilateral ankle, on the left minimal nondisplaced distal fibular tip lucency subacute fracture can not be excluded, on the right avulsion fracture can not be excluded to the calcaneus however, on compressing the calcaneus, nontender. Consultations: 2:[address] Jean, orthopedics, she has review ed x-ray images. No fractures are seen at this time. Clinically with my exam this is reassuring. No obvious fracture seen Treatments: None indicated at this time Re-evaluations: 2:55 p.m. Reviewed with patient and exam and imaging results. They are reassuring. Referral for Orthopedics provided. No prescriptions are indicated at this is time. Pain is controlled. Return precautions reviewed and they desire discharge home. Re-evaluation of patient, up and walking in the room and full active range of motion of both ankles without any difficulty. Patient states has no pain at this time of the ankles. No pain with bearing weight. No ankle pain. There is mild tenderness to the left distal fibula/ankle. But no bruising. Patient states he has had broken bones before and it does not feel like broken bones. Patient states he will elevate his legs when at rest. He does use compression stockings as well. Discussion: Appropriate for discharge home exam is reassuring. No blood work indicated at this time. Images are reassuring. Pain is controlled. Return precautions reviewed and they desire discharge home Diagnosis: Left leg contusion right leg contusion Discharge Plan Departure Patient Disposition: Home Clinical Impression: Contusion of lower leg, right Qualifiers: Encounter type: initial encounter Qualified Code(s): S80.11XA - Contusion of right lower leg, initial encounter Right ankle strain Qualifiers: Encounter type: initial encounter Qualified Code(s): S96.911A - Strain of unspecified muscle and tendon at ankle and foot level, right foot, initial encounter Left ankle strain Qualifiers: Encounter type: initial encounter Qualified Code(s): S96.912A - Strain of unspecified muscle and tendon at ankle and foot level, left foot, initial encounter Instructions: DI for Ankle Sprain, DI for Contusion Activity Restrictions/Additional Instructions: Your exam and x-rays and ultrasound results are reassuring today. Orthopedic provider was consulted and at this time x-rays are reassuring. No splint or luz maria t is needed. Please call the office today for office for re-evaluation within a week. Return if worse if any questions concerns. You may continue home medications. Prescriptions: No Action multivitamin Tablet 1 tab PO DAILY vitamin B complex Capsule 1 cap PO DAILY acetaminophen 325 mg Tablet 650 mg PO Q6HR Qty: 100 0RF oxycodone 5 mg Tablet 5 mg PO Q4H PRN (Reason: Pain, Moderate (4-6)) Qty: 40 0RF hydroxyzine pamoate 25 mg Capsule 25 mg PO Q6H PRN (Reason: Nausea And Vomiting) Qty: 30 0RF enoxaparin [Lovenox] 40 mg/0.4 mL Syringe 40 mg SUBCUT DAILY Qty: 9 0RF Referrals: Raquel Landaverde MD [Physician] - Rosangela Lisa MD [Primary Care Provider] - Stand Alone Forms: Patient Portal/API
[2024-05-01 15:03] VITALS: BP 120/74; PULSE 73; RESP 16; O2SAT 98
== END 2024-05-01 15:04 | disposition home or self-care (01) ==
PROVIDERS: Emergency Provider Emergency Medicine; PCP Family Medicine
DX: S80.11XA Contusion of right lower leg, initial encounter (principal); S96.911A Strain of unspecified muscle and tendon at ankle and foot level, right foot, initial encounter; S96.912A Strain of unspecified muscle and tendon at ankle and foot level, left foot, initial encounter; W30.89XA Contact with other specified agricultural machinery, initial encounter
CPT/HCPCS: 73590; 73610; 93971; 99281; 99283